=== PATIENT | male | born 1970 | race Caucasian/White ===

== ENCOUNTER → 2019-06-12 | Day surgery (SDC) | payer BC ==
[2019-06-11 12:25] LABS: BASOPHILS % 0.6 % (0.0-1.0); EOSINOPHILS # (AUTO) 0.1 (0.0-0.4); HEMATOCRIT 49.5 % (38.2-49.6); HEMOGLOBIN 17.2 g/dL (14.0-18.0); LYMPHOCYTES # (AUTO) 1.9 (1.0-3.2); LYMPHOCYTES % 27.9 % (18.0-39.1); MEAN CORPUSCULAR HEMOGLOBIN 34.2 pg (28-32); MEAN CORPUSCULAR HGB CONC 34.7 g/dL (31-35); MEAN CORPUSCULAR VOLUME 98.4 fL (81-99); MONOCYTES # (AUTO) 0.6 (0.2-0.8); MONOCYTES % 8.3 % (4.4-11.3); NEUTROPHILS # (AUTO) 4.2 (2.1-6.9); NEUTROPHILS % 60.9 % (38.7-80.0); PLATELET COUNT 220 x10e3/uL (140-360); RED BLOOD COUNT 5.03 x10e6/uL (4.3-5.7); RED CELL DISTRIBUTION WIDTH 12.3 % (11.7-14.4)
[2019-06-11 12:45] LABS: ALBUMIN 4.3 g/dL (3.5-5.0); ANION GAP 16.5 mmol/L (8-16); CREATININE, SERUM 1.39 mg/dL (0.72-1.25); POTASSIUM 4.5 mmol/L (3.5-5.1)
--- NOTE | 2019-06-11 14:30 | NUR ---
Dr. Van notified of creatinine 1.39 and eGFR 54. No new orders at this time.
[~2019-06-12] VITALS: Ht 190.5 cm; Wt 127.0 kg
[~2019-06-12] MED LIST: AMIODARONE HCL200 MG PO; ASPIR 8181 MG PO; BENZOCAINE 20% SPR 60 ML CAN ONE; ELIQUIS5 MG PO; FENTANYL CITRATE/PF 100MCG/2 ML INJ ONE; LIDOCAINE 1% W/EPINEPHRINE 20 ML VIAL INJ ONE; LIDOCAINE HCL 2% LOCAL INJ 5 ML SDV VIAL INJ ONE; METOPROLOL TART25 MG PO; MIDAZOLAM HCL 2 MG/2 ML VIAL ONE; PRILOSEC OTC20 MG PO; PROPOFOL IV EMULSION 10 MG/ML 20 ML VIAL ONE; SODIUM CHLORIDE 0.9% 1000ML 1,000 ML ONE
--- OUTSIDE RECORDS SUMMARY | 2019-06-12 08:29 | XMS REPORT ---
Author Author [facility] Address Unknown Phone Unavailable Care Team Providers Care Staff Veterinarian Name Role Phone Unavailable Unavailable Problems This patient has no known problems. Allergies, Adverse Reactions, Alerts This patient has no known allergies or adverse reactions. Medications This patient has no known medications.
--- OUTSIDE RECORDS SUMMARY | 2019-06-12 08:29 | XMS REPORT | Summary of Care ---
Author Author [facility] - Health Organization [facility] - Health Address Unknown Phone Unavailable Care Team Providers Care Nurse Transitional Name Role Phone Pcp, Patient Does Not Have A PCP Reason for Visit * Reason Comments Nausea Diarrhea * Auth/Cert Referred By Contact Referred To Contact Status Reason Specialty Diagnoses / Procedures [facility] Emergency Dept [address] [place] [address] Emergency Medicine Encounter Details Care Team Description Date Type Department Sunny Severino DO [address] [place] [address] Diarrhea in adult patient (Primary Dx) 04/18/2019 Emergency [facility]Emergency Department [address] [place] [address] Allergies No Known Allergiesdocumented as of this encounter (statuses as of 04/18/2019) Medications End Date Status Medication Sig Dispensed Refills Start Date Active ondansetron (ZOFRAN) 4 mg Take 1 tablet 12 tablet 0 tabletIndications: by mouth 9 Diarrhea in adult patient every 8 (eight) hours as needed for Nausea and Vomiting (N/V). documented as of this encounter (statuses as of 04/18/2019) Active Problems No known active problemsdocumented as of this encounter (statuses as of 04/18/2019) Social History Date Tobacco Use Types Packs/Day Years Used Never Assessed Sex Assigned at Date Recorded Not on file Industry Job Start Date Occupation Not on file Not on file Not on file Travel End Travel History Travel Start No recent travel history available. documented as of this encounter Last Filed Vital Signs Reading Time Taken Comments Vital Sign 136/84 04/18/2019 10:00 AM CDT Blood Pressure 80 04/18/2019 10:00 AM CDT Pulse 36.7 C (98 F) 04/18/2019 8:35 AM CDT Temperature 17 04/18/2019 10:00 AM CDT Respiratory Rate 96% 04/18/2019 10:00 AM CDT Oxygen Saturation - - Inhaled Oxygen Concentration 120.2 kg (265 lb) 04/18/2019 8:35 AM CDT Weight 190.5 cm (6' 3") 04/18/2019 8:35 AM CDT Height 33.12 04/18/2019 8:35 AM CDT Body Mass Index documented in this encounter Discharge Instructions * Attachments The following attachments cannot be sent through Care Everywhere.* Diarrhea, Treating (Dominican) documented in this encounter Plan of Treatment Health Maintenance Due Date Last Done Comments DTaP,Tdap,and Td Vaccines 11/08/1987 (1 - Tdap) COLONOSCOPY 2018 Zoster Recombinant 2018 Vaccine (SHINGRIX) (1 of 2) INFLUENZA VACCINE (#1) 2019 PNEUMOCOCCAL 0-64 YEARS Aged Out No longer eligible based COMBINED SERIES on patient's age to complete this topic documented as of this encounter Procedures Comments Procedure Name Priority Date/Time Associated Diagnosis CBC WITH DIFFERENTIAL STAT 04/18/2019 Diarrhea in adult patient 9:05 AM CDT CBC WITH DIFF Routine 04/18/2019 Diarrhea in adult patient 9:05 AM CDT BASIC METABOLIC PANEL STAT 04/18/2019 Diarrhea in adult patient (NA, K, CL, CO2, GLUCOSE, 9:05 AM CDT BUN, CREATININE, CA) HEPATIC FUNCTION PANEL STAT 04/18/2019 Diarrhea in adult patient (34338) (ALB,T.PRO,BILI 9:05 AM CDT T,BU/BC,ALT,AST,ALK PHOS) EKG-12 LEAD STAT 04/18/2019 9:01 AM CDT documented in this encounter Results * CBC WITH DIFFERENTIAL (04/18/2019 9:05 AM CDT) WBC 6.07 4.20 - 10.70 [facility] 10*3/L [facility] RBC 4.96 4.26 - 5.52 10*6/L [facility] HGB 17.1 (H) 12.2 - 16.4 g/dL [facility] HCT 48.6 38.4 - 49.3 % [facility] MCV 98.0 (H) 81.7 - 95.6 fL [facility] MCH 34.5 (H) 26.1 - 32.7 pg [facility] MCHC 35.2 (H) 31.2 - 35.0 g/dL [facility] RDW-SD 46.2 38.5 - 51.6 fL [facility] RDW-CV 13.0 12.1 - 15.4 % [facility] PLT 194 150 - 328 10*3/L [facility] MPV 11.1 9.8 - 13.0 fL [facility] NRBC/100 WBC 0.0 0.0 - 10.0 /100 WBCs [facility] NRBC x10^3 <0.01 10*3/L [facility] GRAN MAT (NEUT) 52.3 % [facility] % [facility] IMM GRAN % 0.20 % [facility] LYMPH % 35.3 % [facility] MONO % 9.2 % [facility] EOS % 2.3 % [facility] BASO % 0.7 % [facility] GRAN MAT 3.18 1.99 - 6.95 10*3/uL [facility] x10^3(ANC) [facility] IMM GRAN x10^3 <0.03 0.00 - 0.06 10*3/uL [facility] LYMPH x10^3 2.14 1.09 - 3.23 10*3/uL [facility] MONO x10^3 0.56 0.36 - 1.02 10*3/uL [facility] EOS x10^3 0.14 0.06 - 0.53 10*3/uL [facility] BASO x10^3 0.04 0.01 - 0.09 10*3/uL [facility] Specimen Blood - ARM, RIGHT Performing Organization Address [facility] Phone Number [facility] CLIA: [id number], [address] [place] [address] [facility] * Hepatic Function Panel (ALB, T.PRO, BILI T, BU/BC, ALT, AST, ALK PHOS) (04/18/2019 9:05 AM CDT) TOTAL BILI 0.9 0.1 - 1.1 mg/dL [facility] BILI UNCON 0.6 0.1 - 1.1 mg/dL [facility] BILI CONJ 0.0 0.0 - 0.3 mg/dL [facility] T PROTEIN 8.4 (H) 6.3 - 8.2 g/dL [facility] ALBUMIN 4.6 3.5 - 5.0 g/dL [facility] ALK PHOS 64 34 - 122 U/L [facility] ALT(SGPT) 68 (H) 9 - 51 U/L [facility] AST(SGOT) 61 (H) 13 - 40 U/L [facility] Specimen Blood - ARM, RIGHT Performing Organization Address [facility] Phone Number [facility] CLIA: [id number], [address] [place] [address] [facility] * Basic Metabolic Panel (NA, K, CL, CO2, GLUCOSE, BUN, CREATININE, CA) (04/18/2019 9:05 AM CDT) NA 138 135 - 145 mmol/L [facility] K 4.4Comment: Slight hemolysis 3.5 - 5.0 mmol/L [facility] CL 103 98 - 108 mmol/L [facility] CO2 TOTAL 23 23 - 31 mmol/L [facility] AGAP 12 2 - 16 [facility] BUN 16Comment: Slight hemolysis 7 - 23 mg/dL [facility] GLUCOSE 124 (H) 70 - 110 mg/dL [facility] CREATININE 0.85 0.60 - 1.25 mg/dL [facility] CALCIUM 9.4 8.6 - 10.6 mg/dL [facility] eGFR 95.4 mL/min/1.73m2 [facility] Calculation [facility] ([facility]) eGFR 115.6 mL/min/1.73m2 [facility] Calculation [facility] ([facility]) Specimen Blood - ARM, RIGHT Narrative Performed At Association of Glomerular Filtration Rate (GFR) and Staging of Kidney Disease* [facility] + + + + [facility] | GFR (mL/min/1.73 m2)| With Kidney Damage|Without Kidney Damage CAMPUS + + + + |>90|Stage one| Normal + + + + |60-89|Stage two| Decreased GFR + + + + |30-59|Stage three| Stage three + + + + |15-29|Stage four | Stage four + + + + |<15 (or dialysis)|Stage five | Stage five + + + + *Each stage assumes the associated GFR level has been in effect for at least three months.Stages 1 to 5, with or without kidney disease, indicate chronic kidney disease. Notes: Determination of stages one and two (with eGFR >59mL/min/1.73 m2) requires estimation of kidney damage for at least three months as defined by structural or functional abnormalities of the kidney, manifested by either: Pathological abnormalities or Markers of kidney damage (including abnormalities in the composition of the blood or urine or abnormalities in imaging tests). Performing Organization Address City/State/Zipcode Phone Number [facility] CLIA: [id number], [address] [place] [address] [facility] documented in this encounter Visit Diagnoses Diagnosis Diarrhea in adult patient - Primary Diarrhea documented in this encounter Administered Medications Action Date Dose Rate Site Medication Order MAR Action 04/18/2019 9:06 AM CDT 1,000 mL 999 mL/hr NaCl 0.9% (NS) bolus infusion 1,000 mL New Bag at 999 mL/hr, 1,000 mL, IV Infusion, ONCE, 1 dose, Idalia 04/18/19 at 0915, KIRA 04/18/2019 9:06 AM CDT 4 mg ondansetron (ZOFRAN (PF)) injection 4 mg Given 4 mg, Slow IV Push, ONCE, 1 dose, Idalia 04/18/19 at 1015, KIRA documented in this encounter Insurance Type Payer Benefit Subscriber ID Effective Phone Address Plan / Dates Group PPO/POS [place] OF [id number] 2019-P [phone] [address] [facility] [id number] [place] [address] documented as of this encounter
--- OUTSIDE RECORDS SUMMARY | 2019-06-12 08:29 | XMS REPORT | Summary of Care ---
Author Author [facility] - Health Organization [facility] - Health Address Unknown Phone Unavailable Care Team Providers Care Administrator Pesticide Name Role Phone Pcp, Patient Does Not Have A PCP Reason for Referral * Radiology Services (Emergency) Referred By Contact Referred To Contact Status Reason Specialty Diagnoses / Procedures Jenifer Forbes I DO [address] [place] [address] New Request Diagnostic Diagnoses Radiology Chest pain, unspecified type P rocedures CHEST 2 VIEWS * Radiology Services (Emergency) Referred By Contact Referred To Contact Status Reason Specialty Diagnoses / Procedures Jenifer Forbes I, DO [address] [address] New Request Diagnostic Diagnoses Radiology Chest pain, unspecified type P rocedures CHEST 2 VIEWS Reason for Visit * Auth/Cert Referred By Contact Referred To Contact Status Reason Specialty Diagnoses / Procedures [facility] Emergency Dept [address] [place] [address] Emergency Medicine Encounter Details Care Team Description Date Type Department Jenifer Forbes I DO [address] [place] [address] [phone] Chest pain, unspecified type (Primary Dx); Nausea in adult; Alcohol abuse 04/26/2019 Emergency [facility] Department [address] [place] [address] Allergies No Known Allergiesdocumented as of this encounter (statuses as of 04/26/2019) Medications End Date Status Medication Sig Dispensed Refills Start Date Active ondansetron (ZOFRAN) 4 mg Take 1 tablet 12 tablet 0 tabletIndications: by mouth 9 Diarrhea in adult patient every 8 (eight) hours as needed for Nausea and Vomiting (N/V). documented as of this encounter (statuses as of 04/26/2019) Active Problems No known active problemsdocumented as of this encounter (statuses as of 04/26/2019) Social History Date Tobacco Use Types Packs/Day Years Used Never Assessed Sex Assigned at Date Recorded Not on file Industry Job Start Date Occupation Not on file Not on file Not on file Travel End Travel History Travel Start No recent travel history available. documented as of this encounter Last Filed Vital Signs Reading Time Taken Comments Vital Sign 123/73 04/26/2019 12:00 PM CDT Blood Pressure 66 04/26/2019 12:00 PM CDT Pulse 37.1 C (98.8 F) 04/26/2019 7:30 AM CDT Temperature 100 04/26/2019 11:00 AM CDT Respiratory Rate 93% 04/26/2019 11:00 AM CDT Oxygen Saturation - - Inhaled Oxygen Concentration 120.5 kg (265 lb 10.5 oz) 04/26/2019 7:30 AM CDT Weight 190.5 cm (6' 3") 04/26/2019 7:30 AM CDT Height 33.2 04/26/2019 7:30 AM CDT Body Mass Index documented in this encounter Discharge Instructions * Instructions* Jenifer Forbes I, DO - 04/26/2019 Worsening of pain with difficulty breathing or swallowing, fever, blood in vomit or stool, coughing up blood. * Attachments The following attachments cannot be sent through Care Everywhere.* Chest Pain, Uncertain Cause ([place]) * Gastritis, Understanding ([place]) documented in this encounter Plan of Treatment [...] Comments Procedure Name Priority Date/Time Associated Diagnosis TROPONIN I STAT 04/26/2019 Chest pain, unspecified 10:49 AM CDT type N-TERMINAL PRO-BNP STAT 04/26/2019 Chest pain, unspecified 8:27 AM CDT type D-DIMER STAT 04/26/2019 Chest pain, unspecified 8:27 AM CDT type XR CHEST 2 VW STAT 04/26/2019 Chest pain, unspecified 8:03 AM CDT type CBC WITH DIFFERENTIAL STAT 04/26/2019 Chest pain, unspecified 7:49 AM CDT type ACTIVATED PARTIAL STAT 04/26/2019 Chest pain, unspecified THRMPLAS PHYLLIS 7:49 AM CDT type PROTHROMBIN TIME / INR STAT 04/26/2019 Chest pain, unspecified 7:49 AM CDT type CBC WITH DIFF Routine 04/26/2019 Chest pain, unspecified 7:49 AM CDT type COMP. METABOLIC PANEL STAT 04/26/2019 Chest pain, unspecified (60658) 7:49 AM CDT type TROPONIN I STAT 04/26/2019 Chest pain, unspecified 7:49 AM CDT type LIPASE STAT 04/26/2019 Chest pain, unspecified 7:49 AM CDT type EKG-12 LEAD STAT 04/26/2019 7:48 AM CDT documented in this encounter Results * Troponin I (04/26/2019 10:49 AM CDT) TROPONIN I 0.002 <=0.034 ng/mL [facility] Specimen Blood - ARM, LEFT Narrative Performed At Equal or Less than 0.034 ng/ml---Normal [facility] Note: Cardiac troponin begins to rise 3-4 hours after the onset of ischemia. [facility] Repeat in 4-6 hours if the sample was drawn within 3-4 hours of the onset of the CAMPUS symptom and found normal. Between 0.035 and 0.120 ng/mL--- Borderline. Questionable myocardial injury or necrosis Note: Serial measurement may be necessary to confirm or exclude the diagnosis of myocardial injury or necrosis; Clinical correlation (symptoms, EKGs, imaging studies, and others) required; Repeat in 4-6 hours if clinically indicated. Equal or Higher than 0.121 ng/mL---Abnormal. Myocardial Injury or Necrosis Likely Biotin has been reported to cause a negative bias, interpret results relative to patient's use of biotin. Performing Organization Address [facility] Phone Number [facility] CLIA: [id number], [address] [place] [address] [facility] * D-DIMER (04/26/2019 8:27 AM CDT) D-DIMER <0.21 <0.50 g/mL (FEU) [facility] Specimen Blood - ARM, LEFT Narrative Performed At This test may be used in conjunction with a clinical pretest probability (PTP) [facility] assessment model to exclude pulmonary embolism (PE) and as an aid in the [facility] diagnosis of deep venous thrombosis (DVT) in outpatients suspected of PE or DVT. CUMMING A D-Dimer value less than 0.50 g/ml (FEU) has a negative predicative value of 98 to 100% (95% CI) for the exclusion of pulmonary embolism (PE) and 95 to 100% (95% CI) as an aid in the diagnosis of deep vein thrombosis (DVT) when there is low or moderate pretest probability of PE or DVT. D-Dimer values are expressed in initial fibrinogen equivalent units (FEU). Performing Organization Address [facility] Phone Number [facility] CLIA: [id number], [address] [place] [address] [facility] * N-TERMINAL PRO-BNP (04/26/2019 8:27 AM CDT) NT-proBNP 30 <=125 pg/mL [facility] Specimen Blood - ARM, LEFT Narrative Performed At [facility] has been reported to cause a negative bias, interpret results relative to [facility] patient's use of biotin. [facility] Performing Organization Address [facility] Phone Number [facility] CLIA: [id number], [address] [place] [address] [facility] * CHEST 2 VIEWS (04/26/2019 8:03 AM CDT) Specimen Impressions Performed At No acute cardiopulmonary disease. Linear lung markings in the PACS/VR/DOSE left lower lobe are most likely chronic changes. Narrative Performed At * * * * * * * * ORIGINAL REPORT * * * * * * * * PACS/VR/DOSE CHEST 2 VIEWS: HISTORY:Chest pain TECHNIQUE::PA and lateral views of the chest are obtained. FINDINGS: A few linear lung markings are seen in the left lower lobe. The lungs are otherwise clear. The heart size and mediastinal silhouette are normal. No pleural effusion or pneumothorax is seen. Procedure Note Memb, Radiant Results Inft User - 04/26/2019 8:08 AM CDT * * * * * * * * ORIGINAL REPORT * * * * * * * * CHEST 2 VIEWS: HISTORY:Chest pain TECHNIQUE:: PA and lateral views of the chest are obtained. FINDINGS: A few linear lung markings are seen in the left lower lobe. The lungs are otherwise clear. The heart size and mediastinal silhouette are normal. No pleural effusion or pneumothorax is seen. IMPRESSION No acute cardiopulmonary disease. Linear lung markings in the left lower lobe are most likely chronic changes. Performing Organization Address City/State/Zipcode Phone Number PACS/VR/DOSE * CBC WITH DIFFERENTIAL (04/26/2019 7:49 AM CDT) WBC 6.72 4.20 - 10.70 [facility] 10*3/L [facility] RBC 5.11 4.26 - 5.52 10*6/L [facility] HGB 17.6 (H) 12.2 - 16.4 g/dL [facility] HCT 49.8 (H) 38.4 - 49.3 % [facility] MCV 97.5 (H) 81.7 - 95.6 fL [facility] MCH 34.4 (H) 26.1 - 32.7 pg [facility] MCHC 35.3 (H) 31.2 - 35.0 g/dL [facility] RDW-SD 44.8 38.5 - 51.6 fL [facility] RDW-CV 12.5 12.1 - 15.4 % [facility] PLT 244 150 - 328 10*3/L [facility] MPV 11.2 9.8 - 13.0 fL [facility] NRBC/100 WBC 0.0 0.0 - 10.0 /100 WBCs [facility] NRBC x10^3 <0.01 10*3/L [facility] GRAN MAT (NEUT) 36.6 % [facility] % [facility] IMM GRAN % 0.10 % [facility] LYMPH % 49.7 % [facility] MONO % 9.5 % [facility] EOS % 3.4 % [facility] BASO % 0.7 % [facility] GRAN MAT 2.45 1.99 - 6.95 10*3/uL [facility] x10^3(ANC) [facility] IMM GRAN x10^3 <0.03 0.00 - 0.06 10*3/uL [facility] LYMPH x10^3 3.34 (H) 1.09 - 3.23 10*3/uL [facility] MONO x10^3 0.64 0.36 - 1.02 10*3/uL [facility] EOS x10^3 0.23 0.06 - 0.53 10*3/uL [facility] BASO x10^3 0.05 0.01 - 0.09 10*3/uL [facility] Specimen Blood - ARM, LEFT Performing Organization Address City/[facility] Phone Number [facility] CLIA: [id number], [address] [place], [place] [address] [facility] * LIPASE, SERUM (04/26/2019 7:49 AM CDT) LIPASE 51 0 - 220 U/L [facility] Specimen Blood - ARM, LEFT Performing Organization Address City/[facility] Phone Number [facility] CLIA: [id number], [address] [place] [address] [facility] * COMP. METABOLIC PANEL (74545) (04/26/2019 7:49 AM CDT) NA 139 135 - 145 mmol/L [facility] K 3.7 3.5 - 5.0 mmol/L [facility] CL 102 98 - 108 mmol/L [facility] CO2 TOTAL 23 23 - 31 mmol/L [facility] AGAP 14 2 - 16 [facility] BUN 12 7 - 23 mg/dL [facility] GLUCOSE 161 (H) 70 - 110 mg/dL [facility] CREATININE 0.96 0.60 - 1.25 mg/dL [facility] TOTAL BILI 1.3 (H) 0.1 - 1.1 mg/dL [facility] CALCIUM 9.9 8.6 - 10.6 mg/dL [facility] T PROTEIN 9.0 (H) 6.3 - 8.2 g/dL [facility] ALBUMIN 4.8 3.5 - 5.0 g/dL [facility] ALK PHOS 85 34 - 122 U/L [facility] ALT(SGPT) 103 (H) 9 - 51 U/L [facility] AST(SGOT) 87 (H) 13 - 40 U/L [facility] eGFR 82.9 mL/min/1.73m2 [facility] Calculation [facility] ([facility]) eGFR 100.5 mL/min/1.73m2 [facility] Calculation [facility] ([facility]) Specimen Blood - ARM, LEFT Narrative Performed At Association of Glomerular Filtration Rate (GFR) and Staging of Kidney Disease* [facility] + + + + SERVICES- [place] [place]ARR[place] | GFR (mL/min/1.73 m2)| With Kidney Damage|Without [...] abnormalities in imaging tests). Performing Organization Address [facility] Phone Number [facility] CLIA: [id number], [address] [place], [place] [address] [facility] * PROTHROMBIN TIME / INR (04/26/2019 7:49 AM CDT) PROTIME PATIENT 11.3 10.1 - 12.6 Seconds [facility] INR 1.0Comment: Normal INR <1.1; [facility] Warfarin Therapeutic range 2.0 [facility] to 3.0 or 2.5 to 3.5, [facility] depending upon the indications. Specimen Blood - ARM, LEFT Performing Organization Address [facility] Phone Number [facility] CLIA: [id number], [address] [place] [address] [facility] * aPTT (04/26/2019 7:49 AM CDT) Pathologist [facility] APTT Patient 26 26 - 36 Seconds [facility] Specimen Blood - ARM, LEFT Performing Organization Address [facility]/Zipcode Phone Number [facility] CLIA: [id number], [address] [place] [address] [facility] * TROPONIN I (04/26/2019 7:49 AM CDT) Pathologist [facility] TROPONIN I 0.002 <=0.034 ng/mL [facility] Specimen Blood - ARM, LEFT Narrative Performed At Equal or Less than 0.034 ng/ml---Normal [facility] Note: Cardiac troponin begins to rise 3-4 hours after the onset of ischemia. [facility] Repeat in 4-6 hours if the sample was drawn within 3-4 hours of the onset of the CAMPUS symptom and found normal. Between 0.035 and 0.120 ng/mL--- Borderline. Questionable myocardial injury or necrosis Note: Serial measurement may be necessary to confirm or exclude the diagnosis of myocardial injury or necrosis; Clinical correlation (symptoms, EKGs, imaging studies, and others) required; Repeat in 4-6 hours if clinically indicated. Equal or Higher than 0.121 ng/mL---Abnormal. Myocardial Injury or Necrosis Likely Biotin has been reported to cause a negative bias, interpret results relative to patient's use of biotin. Performing Organization Address City/State/Zipcode Phone Number [facility] CLIA: [id number], [address] [place] [address] [facility] documented in this encounter Visit Diagnoses Diagnosis Chest pain, unspecified type - Primary Nausea in adult Nausea alone Alcohol abuse Alcohol abuse, unspecified documented in this encounter Administered Medications Action Date Dose Rate Site Medication Order MAR Action sodium chloride (NS) injection 5 mL 5 mL, Intravenous, PRN, Starting Mon04/26/19 at 0747, Until Discontinued, Routine, IV line flushing Action Date Dose Rate Site Medication Order MAR Action 04/26/2019 10:06 AM CDT 243 mg aspirin chewable tablet 243 mg Given 243 mg, Oral, ONCE, 1 dose, Mon04/26/19 at 1115, Routine 04/26/2019 8:17 AM CDT 1,000 mL 999 mL/hr Left Arm NaCl 0.9% (NS) bolus infusion 1,000 mL New Bag at 999 mL/hr, 1,000 mL, IV Infusion, ONCE, 1 dose, Mon04/26/19 at 0815, KIRA documented in this encounter Insurance Type Payer Benefit Subscriber ID Effective Phone Address Plan / Dates Group PPO/POS [employer] [place] [place] [id number] 2019-P [phone] P O ARVIND [facility] [address] [place] [address] documented as of this encounter
[2019-06-12 08:30] VITALS: BP 118/77
--- NOTE | 2019-06-12 12:30 | NUR ---
1105 - pt received for YADY, placed on bedside monitoring. pt positioned for procedure. IV site patent to right hand 20g , VS wnl , NSR rhythm 1110 - all responsible staff present, Timeout performed 1112 - hurricaine spray (spray 1) to oral cavity by XX 1113 - hurricaine spray (spray 2) to oral cavity by XX 1120 - bite block positioned and YADY probe passed 1127 - agitated saline injected for bubble study 1129 - YADY and bit block probe removed , no gross trauma or distress observed 1135 - pt taken to CCL 10 for further recovery
--- NOTE | 2019-06-12 12:30 | NUR ---
Pt meets DC criteria. chest and oral cavity assessed for s/s of complication and presence of bleeding. general skin warm, dry, no discolor, and pulses present. IV removed from right hand by Cyndi. Distal tip appears intact. VS WNL. Pt denies pain, sob, or need at this time. Family at bedside. Review of discharge paperwork and follow up instructions. verbalized understanding of ILR event clicker and base use. ILR synced with base prior to discharge. Pt to wheelchair and transported to front of hospital. Transferred to private vehicle under own strength w/o incident with DC paperwork in hand and ILR base. - cgf
--- NOTE | 2019-06-12 13:00 | NUR ---
Pt prepped for Internal Loop Recorder. See MD note for procedure specifics. VS wnl during procedure and consistently in NSR. Tolerated procedure w/o complaint of pain or need. Dermabond applied to chest ILR wound and allowed to dry. clean dressing applied and ILR confirmed programed. Addendum: 06/12/19 at 1311 by Mark Malin RN ILR implant time 2162
== END | disposition home or self-care (01) ==
LOC: CATH LAB 07:48
PROVIDERS: ATTEND Internal Medicine
DX: R00.2 Palpitations (principal); Z01.812 Encounter for preprocedural laboratory examination; K21.9 Gastro-esophageal reflux disease without esophagitis; I48.91 Unspecified atrial fibrillation; N18.9 Chronic kidney disease, unspecified; I12.9 Hypertensive chronic kidney disease with stage 1 through stage 4 chronic kidney disease, or unspecified chronic kidney disease
CPT/HCPCS: 36415; 80053; 85025; 93320; 93325; C1764; J2001; J2250; J2704; J3010; J7030; 93307; 93312